=== PATIENT | female | born 1985 | race Hispanic/Latino ===

== ENCOUNTER 2019-05-09 10:38 | Emergency (ER) | payer SELFPAY ==
[2019-05-09 12:29] LABS: Basophils % 0.8 % (0-1.3); Hematocrit 30.3 % (36.0-45.0); Lymphocytes % 34.2 % (15.3-44.8); RBC Red Blood Cell Count 3.52 M/uL (3.86-4.86)
[2019-05-09 12:44] LABS: ALT/SGPT 13 U/L (12-78); AST/SGOT 8 U/L (15-37); Albumin 3.9 g/dL (3.4-5.0); Alkaline Phosphatase 46 U/L (45-117); BUN Blood Urea Nitrogen 11 mg/dL (7-18); Bicarbonate 26 mmol/L (21-32); Bilirubin Direct < 0.1 mg/dL (0-0.2); Bilirubin Total 0.3 mg/dL (0.2-1.0); Glucose Level 90 mg/dL (74-106); Lipase 150 U/L (73-393); Potassium 3.6 mmol/L (3.5-5.1); Protein, Total 7.6 g/dL (6.4-8.2); Sodium Level 142 mmol/L (136-145)
[2019-05-09 12:44] LABS: Urine Blood NEGATIVE (NEG); Urine Glucose NEGATIVE (NEG); Urine Protein NEGATIVE (NEG); Urine pH 7.5 (5.0-7.0)
[2019-05-09 13:00] LABS: Urine Amorphous Sediment 2+ /HPF (NONE SEEN); Urine Bacteria NONE SEEN /HPF (<20); Urine Culture Reflex Order NOT NEEDED; Urine RBC NONE SEEN /HPF (NONE SEEN)
[2019-05-09 13:04] LABS: Thyroid Stimulating Hormone 75.9 uIU/mL (0.360-3.740)
--- NOTE | 2019-05-09 13:34 | RAD REPORT ---
EXAM DESCRIPTION: CT - Abdomen Pelvis W Contrast - 05/09/2019 1:20 pm CLINICAL HISTORY: Abdominal pain COMPARISON: none. TECHNIQUE: Computed axial tomography of the abdomen pelvis was obtained. 100 cc Isovue-300 was admin istered intravenously. Oral contrast was not requested which limits evaluation of bowel. All CT scans are performed using dose optimization technique as appropriate and may include automated exposure control or mA/KV adjustment according to patient size. FINDINGS: The left lobe of the liver is prominent Spleen, pancreas, adrenal and kidneys appear unremarkable. There is no evidence of diverticulitis. Normal appendix Small umbilical hernia IMPRESSION: No acute abnormality is displayed.
--- NOTE | 2019-05-09 13:56 | ER ---
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 States that she has been noticing blood when she had bowel movements, at first it was solid stool with blood, but her stools have started getting looser and she feels like she has to have a bowel movement as soon as she eats anything. Denies vomiting. Transition of care: patient was not received from another setting of care. Onset of symptoms was 2018. Risk Assessment: Do you want to hurt yourself or someone else? Patient reports no desire to harm self or others. Initial Sepsis Screen: Does the patient meet any 2 criteria? No. Patient's initial sepsis screen is negative. Does the patient have a suspected source of infection? Yes: Acute abdominal pain. Care prior to arrival: None. 11:11 Method Of Arrival: Ambulatory [facility] 11:11 Acuity: ARMIN 3 aj1 Triage Assessment: 11:19 General: Appears in no apparent distress. comfortable, Behavior is calm, cooperative, aj1 appropriate for age. Pain: Complains of pain in suprapubic area Pain currently is 7 out of 10 on a pain scale. Neuro: Level of Consciousness is awake, alert, obeys commands, Oriented to person, place, time, situation. Cardiovascular: Patient's skin is warm and dry. Respiratory: Airway is patent Respiratory effort is even, unlabored, Respiratory pattern is regular, symmetrical. GI: Reports bloody stool. 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 - Social history:: Smoking status: Patient/guardian denies using tobacco. - Ebola Screening: : Patient denies travel to an Ebola-affected area in the 21 days before illness onset. Screenin:50 Abuse screen: Denies threats or abuse. Denies injuries from another. Nutritional jl7 screening: No deficits noted. Tuberculosis screening: No symptoms or risk factors identified. Fall Risk IV access (20 points). Total Verdin Fall Scale indicates No Risk (0-24 pts). Assessment: 11:50 General: Appears in no apparent distress. uncomfortable, Behavior is calm, cooperative, jl7 appropriate for age. Pain: Complains of pain in right lower quadrant and left lower quadrant Pain does not radiate. Pain currently is 5 out of 10 on a pain scale. Quality of pain is described as crampy, Pain began 2-3 days ago. Is continuous. Neuro: Level of Consciousness is awake, alert, obeys commands, Oriented to person, place, time, situation. Cardiovascular: Patient's skin is warm and dry. Respiratory: Airway is patent Respiratory effort is even, unlabored, Respiratory pattern is regular, symmetrical. GI: Abdomen is flat, non-distended, Bowel sounds present X 4 quads. Reports diarrhea, rectal bleeding. Derm: Skin is pink, warm \\T\\ dry. 13:00 Reassessment: Patient appears in no apparent distress at this time. No changes from jl7 previously documented assessment. Patient and/or family updated on plan of care and expected duration. Pain level reassessed. Patient is alert, oriented x 3, equal unlabored respirations, skin warm/dry/pink. 13:35 Reassessment: ERP at bedside discussing plan of care. jl7 Vital Signs: 11:19 BP 110 / 61; Pulse 77; Resp 16; Temp 97.7; Pulse Ox 100% on R/A; Weight 58.06 kg (R); aj1 Height 5 ft. 2 in. (157.48 cm) (R); Pain 7/10; 11:19 Body Mass Index 23.41 (58.06 kg, 157.48 cm) aj1 ED Course: 10:41 Patient arrived in ED. mr 10:55 Lay Brooks, [facility]. kb 10:55 Izaiah Noel MD is Attending Physician. kb 11:18 Triage completed. aj1 11:19 Arm band placed on Patient placed in waiting room, Patient notified of wait time. aj1 11:48 Na Grace, RN is Primary Nurse. jl7 11:50 Patient has correct armband on for positive identification. Placed in gown. Bed in low jl7 position. Call light in reach. Side rails up X 1. Pulse ox on. NIBP on. Warm blanket given. 12:00 Initial lab(s) drawn, by me, sent to lab. Inserted saline lock: 22 gauge in right jl7 forearm, using aseptic technique. Blood collected. 12:08 Urine collected: clean catch specimen, clear. 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 jl7 12:43 Lab(s) recollected, by me, sent to lab. 7 13:20 CT Abd/Pelvis - IV Contrast Only In Process Unspecified. EDMS 14:10 IV discontinued, intact, bleeding controlled, No redness/swelling at site. Pressure jl7 dressing applied. Administered Medications: No medications were administered Outcome: 13:55 Discharge ordered by MD. kb 14:10 Discharged to home ambulatory. jl7 14:10 Condition: stable 14:10 Discharge instructions given to patient, family, Instructed on discharge instructions, follow up and referral plans. Demonstrated understanding of instructions, follow-up care. 14:11 Patient left the ED. jl7 Signatures: Dispatcher [employer] EDMS Lay Brooks, SAND SIFTER-C SAND SIFTER-CkKathryn Nur, RN RN aj1 Eula Richardson mr Na rGace, ROMELIA RN 7 Myra Sheldon [facility]
--- NOTE | 2019-05-09 13:56 | EDPHYS ---
Physician Documentation [facility] Name: Bisi Santana Age: 33 yrs Sex: Female : 1985 Arrival Date: 05/09/2019 Time: 10:41 Bed 14 Private MD: ED Physician Izaiah Noel HPI: 05/09 12:51 This 33 yrs old Female presents to ER via Ambulatory with complaints of Rectal kb Bleeding. 12:51 The patient presents with abdominal pain in the lower abdomen. Onset: The kb symptoms/episode began/occurred 3 day(s) ago. The symptoms do not radiate. Associated signs and symptoms: Pertinent positives: blood in stools. The symptoms are described as constant. Modifying factors: The symptoms are alleviated by nothing, the symptoms are aggravated by nothing. Severity of pain: At its worst the pain was mild moderate in the emergency department the pain is unchanged. The patient has not experienced similar symptoms in the past. The patient has not recently seen a physician. Pt reports blood in stools and lower abd pain for 3 days. Also reports she went to Dr Perkins for a thyroid check because she is on levothydroxine and her TSH was >100 so they said to get that looked at as well. Pt takes 125mcg daily. 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 - Social history:: Smoking status: Patient/guardian denies using tobacco. - Ebola Screening: : Patient denies travel to an Ebola-affected area in the 21 days before illness onset. ROS: 12:48 Constitutional: Negative for fever, chills, and weight loss, ENT: Negative for injury, kb pain, and discharge, Neck: Negative for injury, pain, and swelling, Cardiovascular: Negative for chest pain, palpitations, and edema, Respiratory: Negative for shortness of breath, cough, wheezing, and pleuritic chest pain, Back: Negative for injury and pain, MS/Extremity: Negative for injury and deformity, Skin: Negative for injury, rash, and discoloration, Neuro: Negative for headache, weakness, numbness, tingling, and seizure. 12:48 Abdomen/GI: Positive for abdominal pain, rectal bleeding. Exam: 12:49 Constitutional: This is a well developed, well nourished patient who is awake, alert, kb and in no acute distress. Head/Face: Normocephalic, atraumatic. ENT: Nares patent. No nasal discharge, no septal abnormalities noted. Tympanic membranes are normal and external auditory canals are clear. Oropharynx with no redness, swelling, or masses, exudates, or evidence of obstruction, uvula midline. Mucous membranes moist. Neck: Trachea midline, no thyromegaly or masses palpated, and no cervical lymphadenopathy. Supple, full range of motion without nuchal rigidity, or vertebral point tenderness. No Meningismus. Chest/axilla: Normal chest wall appearance and motion. Nontender with no deformity. No lesions are appreciated. Cardiovascular: Regular rate and rhythm with a normal S1 and S2. No gallops, murmurs, or rubs. Normal PMI, no JVD. No pulse deficits. Respiratory: Lungs have equal breath sounds bilaterally, clear to auscultation and percussion. No rales, rhonchi or wheezes noted. No increased work of breathing, no retractions or nasal flaring. Back: No spinal tenderness. No costovertebral tenderness. Full range of motion. Skin: Warm, dry with normal turgor. Normal color with no rashes, no lesions, and no evidence of cellulitis. MS/ Extremity: Pulses equal, no cyanosis. Neurovascular intact. Full, normal range of motion. Neuro: Awake and alert, GCS 15, oriented to person, place, time, and situation. Cranial nerves II-XII grossly intact. Motor strength 5/5 in all extremities. Sensory grossly intact. Cerebellar exam normal. Normal gait. 12:49 Abdomen/GI: Inspection: abdomen appears normal, Bowel sounds: normal, in all quadrants, Palpation: soft, in all quadrants, mild abdominal tenderness, in the suprapubic area. 12:50 Abdomen/GI: Rectal exam: rectal tone normal, Stool: brown, guaiac positive, kb hemorrhoid(s), external, without bleeding, without inflammation, without thrombosis, without pain. Vital Signs: 11:19 BP 110 / 61; Pulse 77; Resp 16; Temp 97.7; Pulse Ox 100% on R/A; Weight 58.06 kg (R); aj1 Height 5 ft. 2 in. (157.48 cm) (R); Pain 7/10; 11:19 Body Mass Index 23.41 (58.06 kg, 157.48 cm) aj1 MDM: 11:49 Patient medically screened. kb 12:31 Data reviewed: vital signs, nurses notes. Data interpreted: Pulse oximetry: on room air kb is 100 %. Interpretation: normal. 13:51 Counseling: I had a detailed discussion with the patient and/or guardian regarding: the kb historical points, exam findings, and any diagnostic results supporting the discharge/admit diagnosis, lab results, radiology results, the need for outpatient follow up, a licensed occupational therapy assistant, area loss prevention manager, to return to the emergency department if symptoms worsen or persist or if there are any questions or concerns that arise at home. 05/09 11:51 Order name: Basic Metabolic Panel; Complete Time: 12:47 kb 05/09 11:51 Order name: CBC with Diff; Complete Time: 12:36 kb 05/09 11:51 Order name: Hepatic Function; Complete Time: 12:47 kb 05/09 11:51 Order name: Lipase; Complete Time: 12:47 kb 05/09 11:51 Order name: Type And Screen; Complete Time: 13:36 kb 05/09 12:11 Order name: Urine Microscopic Only; Complete Time: 13:05 dh3 05/09 11:51 Order name: IV Saline Lock; Complete Time: 12:40 kb 05/09 12:29 Order name: TSH; Complete Time: 13:22 kb 05/09 12:38 Order name: Urine Dipstick--Ancillary (enter results) iw 05/09 12:38 Order name: Urine --Ancillary (enter results); Complete Time: 12:47 iw 05/09 12:38 Order name: Urine Dipstick-Ancillary; Complete Time: 12:47 EDMS 05/09 12:38 Order name: Guiac; Complete Time: 12:47 kb 05/09 13:05 Order name: T4 Free; Complete Time: 13:22 EDMS 05/09 13:06 Order name: CT Abd/Pelvis - IV Contrast Only; Complete Time: 13:36 kb 05/09 11:51 Order name: Labs collected and sent; Complete Time: 12:40 kb 05/09 11:51 Order name: Urine Dipstick-Ancillary (obtain specimen); Complete Time: 12:11 kb 05/09 12:16 Order name: Labs - recollect needed; Complete Time: 12:40 bd Administered Medications: No medications were administered Disposition: 14:51 Co-signature as Attending Physician, Izaiah Noel MD I agree with the assessment and kdr plan of care. Disposition: 05/09/19 13:55 Discharged to Home. Impression: Gastrointestinal hemorrhage, unspecified - rectal bleeding, Hypothyroidism, unspecified. - Condition is Stable. - Discharge Instructions: Hypothyroidism, Rectal Bleeding, [id number]. - Medication Reconciliation Form, Thank You Letter, Antibiotic Education, Prescription Opioid Use form. - Follow up: Emergency Department; When: As needed; Reason: Worsening of condition. Follow up: Private Physician; When: 2 - 3 days; Reason: Recheck today's complaints, Continuance of care, Re-evaluation by your physician. Signatures: Dispatcher [employer] EDMS Lay Brooks, COMMUNITY EDUCATION COORDINATOR-C COMMUNITY EDUCATION COORDINATOR-Ckb Jane Haynes Angela, RN RN aj1 Izaiah Noel MD MD kdr Na Grace RN RN jl7 Corrections: (The following items were deleted from the chart) 12:54 12:51 The patient presents to the emergency department with bleeding from the kb rectum/anus, kb 14:11 13:55 05/09/2019 13:55 Discharged to Home. Impression: Gastrointestinal hemorrhage, jl7 unspecified - rectal bleeding; Hypothyroidism, unspecified. Condition is Stable. Forms are Medication Reconciliation Form, Thank You Letter, Antibiotic Education, Prescription Opioid Use. Follow up: Emergency Department; When: As needed; Reason: Worsening of condition. Follow up: Private Physician; When: 2 - 3 days; Reason: Recheck today's complaints, Continuance of care, Re-evaluation by your physician. kb
[2019-05-09 14:31] VITALS: BP 110/61; O2SAT 100
[2019-05-09 14:36] VITALS: TEMP 98.1
== END 2019-05-09 14:11 | disposition home or self-care (01) ==
LOC: ER 10:38
DX: K92.2 Gastrointestinal hemorrhage, unspecified (principal); E03.9 Hypothyroidism, unspecified
CPT/HCPCS: 36415; 74177; 80048; 80076; 81003; 81015; 81025; 82272; 83690; 84439; 84443; 85025; 86850; 86900; 86901; 99284; Q9967